=== PATIENT | male | born 1970 | race African-American/Black ===

== ENCOUNTER 2019-11-11 10:36 | Emergency (ER) | payer OTHER ==
[~2019-11-11] VITALS: Ht 182.9 cm; Wt 95.6 kg
--- NOTE | 2019-11-11 11:03 | PHYS DOC ---
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 Patient had a cervical fusion in the past. About 6 days ago he started to notice a loose body in the anterior neck. He is able to freely move around and grab all of it with his fingers. He is concerned about it being a surgical screw that came out. It is not making it more difficult to breathe or eat. He does state that some of his pain has returned similar to before surgery though less severe. He denies fever chills. Denies any trauma. Review of Systems: Review of Systems: Constitutional: Denies fever or chills Eyes: Denies change in visual acuity HENT: Foreign body anterior neck Respiratory: Denies cough or shortness of breath Cardiovascular: Denies chest pain or edema GI: Denies abdominal pain, nausea, vomiting, bloody stools or diarrhea : Denies dysuria Musculoskeletal: Denies back pain or joint pain Integument: Denies rash Neurologic: Denies headache, focal weakness or sensory changes Endocrine: Denies polyuria or polydipsia Lymphatic: Denies swollen glands Psychiatric: Denies depression or anxiety Heart Score: Risk Factors: Risk Factors: DM, Current or recent (<one month) smoker, HTN, HLP, family history of CAD, obesity. Risk Scores: Score 0 - 3: 2.5% MACE over next 6 weeks - Discharge Home Score 4 - 6: 20.3% MACE over next 6 weeks - Admit for Clinical Observation Score 7 - 10: 72.7% MACE over next 6 weeks - Early Invasive Strategies Allergies: Allergies: Allergies Coded Allergies Type Severity Reaction Last Updated Verified No Known Drug Allergies 11/11/19 No Physical Exam: PE: Constitutional: Well developed, well nourished, no acute distress, non-toxic appearance. [] HENT: Normocephalic, atraumatic, bilateral external ears normal, oropharynx moist, no oral exudates, nose normal. Palpable mass 1/2 cm x 1 cm in the superficial anterior neck, firm but not hard; freely mobile. [] Eyes: PERRLA, EOMI, conjunctiva normal, no discharge. [] Neck: Normal range of motion, no tenderness, supple, no stridor. [] Cardiovascular:Heart rate regular rhythm, no murmur [] Lungs & Thorax: Bilateral breath sounds clear to auscultation [] Abdomen: Bowel sounds normal, soft, no tenderness, no masses, no pulsatile masses. [] Skin: Warm, dry, no erythema, no rash. [] Back: No tenderness, no CVA tenderness. [] Extremities: No tenderness, no cyanosis, no clubbing, ROM intact, no edema. [] Neurologic: Alert and oriented X 3, normal motor function, normal sensory function, no focal deficits noted. [] Psychologic: Affect normal, judgement normal, mood normal. [] EKG: EKG: [] Radiology/Procedures: Radiology/Procedures: [] Impressions: PQRS Compliance Statement: One or more of the following individualized dose reduction techniques were utilized for this examination: 1. Automated exposure control 2. Adjustment of the mA and/or kV according to patient size 3. Use of iterative reconstruction technique Neck CT with contrast: 11/11/2019 Indication: Lump in the anterior neck. History of cervical fusion. Technique: Multiple axial images were obtained through the neck following intravenous injection of contrast material. Comparison: None. Findings: The visualized brain parenchyma appears intact. The skull base is normal. The visualized paranasal sinuses and orbital contents are normal. The sella turcica and cavernous sinus regions appear intact. The mastoid air cells are normal. The fossa of Rosenmuller is normal. Bilateral tonsilloliths are present. The parotid space contents and echo vascular technologist space contents appear intact. The parapharyngeal spaces are normal. The submandibular and sublingual space contents appear intact. The epiglottis, aryepiglottic folds, and piriform sinuses are normal. The vallecula appears normal. The larynx and trachea are normal. The thyroid lobes appear intact. The carotid space contents are normal. There is no deep cervical chain adenopathy observed. The jugulodigastric regions appear intact. No soft tissue abnormality identified in the region of palpable abnormality. The perivertebral space contents are normal. The supraclavicular regions appear intact. The visualized mediastinum is normal. The visualized lungs appear intact. Anterior cervical discectomy and fusion hardware is identified at C4-C5. Anterior marginal osteophytosis is identified at C3-C4, C5-C6 and C6-C7 without significant prevertebral soft tissue swelling. There is congenital narrowing of the spinal canal secondary to shortened pedicles. Varying degrees of at least mild spinal canal stenosis identified from C3-C4 through and C6-C7. Impression: 1. Anterior cervical discectomy and fusion hardware is identified at C4-C5 without evidence for hardware failure. No prevertebral soft tissue swelling is identified. Extent 2. 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 3. In the region of palpable abnormality, there is no suspicious soft tissue mass. Thyroid gland is normal in appearance. No suspicious cervical lymphadenopathy. 4. Bilateral tonsilloliths are present. Electronically signed by: Brennan Amador MD (11/11/2019 11:35 AM) [facility] DICTATED AND SIGNED BY: BRENNAN AMADOR MD DATE: 11/11/19 1135 CC: SHEILA CALDERON DO; CORINNA WASHINGTON ~ Course & Med Decision Making: Course & Med Decision Making Pertinent Labs and Imaging studies reviewed. (See chart for details) There did appear to be a palpable object on exam, but the CT does not show any radiopaque foreign body or abnormal soft tissue in the area of concern. It is possible this is just a subcutaneous firmness that is not abnormal. He has other incidental cervical findings. See report for more details. He is stable for discharge at this time. [] Dragon Disclaimer: Dragon Disclaimer: This electronic medical record was generated, in whole or in part, using a voice recognition dictation system. Departure Departure: Impression: Primary Impression: Foreign body of neck, superficial Qualified Codes: S10.95XA - Superficial foreign body of unspecified part of neck, initial encounter Disposition: HOME/RESIDENCE PRIOR TO ADM Condition: STABLE Referrals: CORINNA WASHINGTON (PCP) Justification of Admission: Justification of Admission: Justification of Admission Dx: N/A SHEILA CALDERON DO Nov 11, 2019 11:03
--- NOTE | 2019-11-11 11:38 | RAD ---
PQRS Compliance Statement: One or more of the following individualized dose reduction techniques were utilized for this examination: 1. Automated exposure control 2. Adjustment of the mA and/or kV according to patient size 3. Use of iterative reconstruction technique Neck CT with contrast: 11/11/2019 Indication: Lump in the anterior neck. History of cervical fusion. Technique: Multiple axial images were obtained through the neck following intravenous injection of contrast material. Comparison: None. Findings: The visualized brain parenchyma appears intact. The skull base is normal. The visualized paranasal sinuses and orbital contents are normal. The sella turcica and cavernous sinus regions appear intact. The mastoid air cells are normal. The fossa of Rosenmuller is normal. Bilateral tonsilloliths are present. The parotid space contents and utility system operator space contents appear intact. The parapharyngeal spaces are normal. The submandibular and sublingual space contents appear intact. The epiglottis, aryepiglottic folds, and piriform sinuses are normal. The vallecula appears normal. The larynx and trachea are normal. The thyroid lobes appear intact. The carotid space contents are normal. There is no deep cervical chain adenopathy observed. The jugulodigastric regions appear intact. No soft tissue abnormality identified in the region of palpable abnormality. The perivertebral space contents are normal. The supraclavicular regions appear intact. The visualized mediastinum is normal. The visualized lungs appear intact. Anterior cervical discectomy and fusion hardware is identified at C4-C5. Anterior marginal osteophytosis is identified at C3-C4, C5-C6 and C6-C7 without significant prevertebral soft tissue swelling. There is congenital narrowing of the spinal canal secondary to shortened pedicles. Varying degrees of at least mild spinal canal stenosis identified from C3-C4 through and C6-C7. Impression: 1. Anterior cervical discectomy and fusion hardware is identified at C4-C5 without evidence for hardware failure. No prevertebral soft tissue swelling is identified. Extent 2. 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 3. In the region of palpable abnormality, there is no suspicious soft tissue mass. Thyroid gland is normal in appearance. No suspicious cervical lymphadenopathy. 4. Bilateral tonsilloliths are present. Electronically signed by: Key Amador MD (11/11/2019 11:35 AM) [facility]
[2019-11-11 12:00] VITALS: BP 133/63
== END 2019-11-11 11:59 | disposition home or self-care (01) ==
LOC: ER 10:36
DX: S10.85XA Superficial foreign body of other specified part of neck, initial encounter (principal); X58.XXXA Exposure to other specified factors, initial encounter; Y93.89 Activity, other specified; Y92.89 Other specified places as the place of occurrence of the external cause; Y99.8 Other external cause status
CPT/HCPCS: 70490; 99284-25